=== PATIENT | female | born 1975 | race Caucasian/White ===

== ENCOUNTER 2022-04-20 11:51 | Emergency (ER) | payer BC, SELFPAY ==
[2022-04-20 12:00] VITALS: BP 129/62; PULSE 85; RESP 14; TEMP 36.8; O2SAT 99
--- NOTE | 2022-04-20 12:03 | ED.BACK ---
HPI - Back Pain/Injury General Chief Complaint: Back Pain/Injury Stated Complaint: Low right back pain Time Seen by Provider: 04/20/22 12:40 Source: patient Mode of arrival: ambulatory Limitations: no limitations History of Present Illness HPI Narrative: 47-year-old female presents concern for bilateral low back pain. She denies any injury or trauma. She reports she has had the same pain in the past typically yearly or every other year. She reports pain started yesterday, she tried ibuprofen and she had 1 leftover cyclobenzaprine which did make some difference. She reports pain is worsened with getting up from lying down, bending. Reports pain with her standing up straight. She denies loss of bowel or bladder function, perianal anesthesia, abdominal pain, fever, weakness in extremity MD elicited complaint: back pain Related Data Allergies Allergy/AdvReac Type Severity Reaction Status Date / Time lidocaine Allergy Unknown Itching Verified 04/20/22 12:19 prochlorperazine Allergy Unknown Swelling Verified 04/20/22 12:19 Review of Systems Review of Systems: CONSTITUTIONAL: Denies malaise, chills, sweats, or fever. CARDIOVASCULAR: Denies chest pain, palpitations, or edema. RESPIRATORY: Denies cough or dyspnea. GASTROINTESTINAL: Denies abdominal pain, nausea, vomiting, diarrhea, loss of bowel function GENITOURINARY: Denies dysuria, hematuria, frequency, loss of bladder function. SKIN: Denies rash or itching. MUSCULOSKELETAL: Reports bilateral low back pain, little bit higher on the right. NEUROLOGIC: Denies numbness, weakness, or headache. All systems reviewed & are unremarkable except as noted in HPI and below PMFSH Comments At time of signature, agree with nursing past medical, surgical, social and family history. There is no relevant family history pertinent to the presenting complaint Exam Narrative: GENERAL: Well-appearing, well-nourished, and in no acute distress. HEAD: Normocephalic, atraumatic. EYES: PERRLA and EOMI. NECK: Supple. No lymphadenopathy. CHEST: Clear to auscultation. No respiratory distress. HEART: Regular rate and rhythm. Distal pulses palpable and equal, cap refill <3 seconds ABDOMEN: Soft, nontender, nondistended, normal active bowel sounds, no palpable or pulsatile masses. No CVA tenderness MUSCULOSKELETAL: Normal range of motion and strength in all extremities; 5/5 strength with hip flexion and extension, dorsiflexion and extension, knee flexion and extension, plantar flexion and extension. Normal sensation in dermatomal distributions with sensitivity to light touch and pain. No midline back tenderness to palpation. No paraspinal tenderness. Transfers from lying to sitting to standing. SKIN: Warm, dry, no rash. No ecchymosis, erythema, open wounds to back. NEURO: No focal deficits. Alert and oriented x3. Reflexes intact. Stooped gait. PSYCH: Normal mood and affect Course Course Emergency Course: Patient is aware of diagnosis, understands and agrees to treatment plan. Anticipatory guidance given. Patient agrees to follow-up as directed and is aware of reasons to seek care at the emergency department. Portions of this record may have been created with voice recognition software Level of Care: Express Care Visit Vital Signs Vital signs: Reviewed. MDM - Back Pain/Injury MDM Narrative Medical decision making narrative: No risk factors or findings concerning for epidural abscess, diskitis, vertebral osteomyelitis, cord compression, cauda equina, vertebral fracture or bone malignancy, AAA, or pyelonephritis. Patient instructed to consider further imaging and workup through their primary care physician as an outpatient if symptoms persist. Critical Care Time Critical Care Time Critical Care Time: No Discharge Plan Discharge Clinical Impression: Nonspecific low back pain Patient Disposition: Home, Self-Care Condition: Stable Instructions: Acute Low Back Pain (ED) Additional Instru
[2022-04-20] MEDS: KETOROLAC (*BKC) 60 MG/2 ML VIAL IM (12:11)
[2022-04-20 12:19] VITALS: BP 129/62; PULSE 85; RESP 14; TEMP 36.8; O2SAT 99
== END 2022-04-20 12:47 | disposition home or self-care (01) ==
PROVIDERS: Emergency Provider Nurse Practitioner; PCP Internal Medicine Geriatric Medicine
DX: M54.50 Low back pain, unspecified (principal)
CPT/HCPCS: 96372; 99203; G0463; J1885

== ENCOUNTER 2022-06-02 16:14 | Emergency (ER) | payer BC, SELFPAY ==
[2022-06-02 16:28] VITALS: BP 130/63; PULSE 80; RESP 16; TEMP 36.7; O2SAT 100
--- NOTE | 2022-06-02 17:08 | ED.URI ---
HPI - URI/Sore Throat General Chief Complaint: Upper Respiratory Infection Stated Complaint: Sinus Pain Time Seen by Provider: 06/02/22 17:08 Source: patient and RN notes reviewed Mode of arrival: ambulatory Limitations: no limitations History of Present Illness HPI Narrative: 47-year-old female presenting for complaint of cough, headache, body aches, and fatigue over the last 2 days. She also endorses sinus pressure/congestion for 3 weeks. states she has seasonal allergies and uses Flonase and Zyrtec year-round. She states this is how she feels when she has sinus infections. Denies shortness of breath, wheezing, nausea, vomiting, diarrhea, fever or chills. She had a negative COVID test at home. MD elicited complaint: cough Related Data Home Medications Medication Instructions Recorded Confirmed cetirizine 10 mg tablet (Zyrtec) 10 mg PO DAILY 06/02/22 06/02/22 cholecalciferol (vitamin D3) 125 125 mcg PO DAILY 06/02/22 06/02/22 mcg (5,000 unit) capsule (Dialyvite Vitamin D) fluticasone propionate 50 1 spray intranasal Q12H 06/02/22 06/02/22 mcg/actuation nasal spray,suspension melatonin 10 mg tablet 10 mg PO HS PRN Sleep 06/02/22 06/02/22 Allergies Allergy/AdvReac Type Severity Reaction Status Date / Time lidocaine Allergy Unknown Itching Verified 06/02/22 16:46 prochlorperazine Allergy Unknown Swelling Verified 06/02/22 16:46 Review of Systems Review of Systems: ROS per HPI Exam Narrative: GENERAL: Ill-appearing, nontoxic EYES: PERRLA, conjunctivae clear ENT: Mucous membranes moist. maxillary pressure with palpation. TM pearly perez with dull light reflex bilaterally; no tragal tenderness. Oropharynx erythematous without lesions or exudate, no drooling, no hoarseness, no trismus, uvula midline. CHEST: Clear to auscultation, breath sounds equal. No wheezing, rhonchi, rales, or stridor. No respiratory distress, speaks in full sentences. HEART: Regular rate and rhythm. No murmur heard. SKIN: Warm, dry, no rash. NEURO: Alert and oriented x3. PSYCH: Normal mood and affect Course Course Emergency Course: Patient is aware of diagnosis, understands and agrees to treatment plan. Anticipatory guidance given. Patient agrees to follow-up as directed and is aware of reasons to seek care at the emergency department. Portions of this record may have been created with voice recognition software Level of Care: Express Care Visit Vital Signs Vital signs: Vital Signs Temperature 98.1 F 06/02/22 16:28 Pulse Rate 80 06/02/22 16:28 Respiratory Rate 16 06/02/22 16:28 Blood Pressure 130/63 06/02/22 16:28 Pulse Oximetry 100 06/02/22 16:28 Oxygen Delivery Room Air 06/02/22 16:28 Temperature 98.1 F 06/02/22 16:28 Pulse Rate 80 06/02/22 16:28 Respiratory Rate 16 06/02/22 16:28 Blood Pressure 130/63 06/02/22 16:28 Pulse Oximetry 100 06/02/22 16:28 Oxygen Delivery Room Air 06/02/22 16:28 reviewed MDM - URI/Sore Throat MDM Narrative Medical decision making narrative: Influenza positive. Patient also has had sinus pressure and congestion for 3 weeks. Will send an antibiotic for sinusitis. Advised supportive measures and signs/symptoms to go to the ER. Pt is appropriate for outpt treatment and f/u. Differential Diagnosis Differential diagnosis: Likely upper respiratory infection, sinusitis and viral infection Discharge Plan Discharge Clinical Impression: Influenza, Upper respiratory infection Patient Disposition: Home, Self-Care Condition: Stable Instructions: Influenza (ED), Rhinosinusitis (ED) Additional Instructions: Influenza positive You should avoid crowds until you are fever free for 24 hours without the use of fever reducing medications, or the symptoms are improved Rest. Drink plenty of fluids. Tylenol 1000mg every 8 hours as needed for pain/fever Recommend Flonase spray and Zyrtec (or Claritin/Cristy) for sinus pressure/congestion ove
== END 2022-06-02 17:20 | disposition home or self-care (01) ==
PROVIDERS: Emergency Provider Nurse Practitioner Family
DX: J10.1 Influenza due to other identified influenza virus with other respiratory manifestations (principal)
CPT/HCPCS: 87804; 99213; G0463

== ENCOUNTER 2024-08-22 18:22 | Emergency (ER) | payer BC, SELFPAY ==
--- OUTSIDE RECORDS SUMMARY | 2024-08-22 18:24 | XMS_ITS | Referral Summary ---
Author Organization [facility] Address [address] [place] [address] Care Team Providers Care Timber Cruiser Name Role Phone Gregor Allred MD Primary Care Provider + Encounters Date Type Department Care Team Description 06/25/2024 1:30 PM WATER AND SEWER SYSTEMS SUPERVISOR Office Visit [facility] at [address] [place] [address] Jennifer Taylor NP Bacterial sinusitis (Primary Dx) 06/25/2024 Telephone [facility] [address] [address] Chioma Diane NP 06/21/2024 6:30 PM WATER AND SEWER SYSTEMS SUPERVISOR Office Visit [facility] at [address] [place] [address] Chioma Diane NP Pharyngitis, unspecified etiology (Primary Dx); Aphthous ulcer from Last 3 Months Allergies Active Allergy Reactions Criticality Noted Date Comments Latex Rash Medium 03/17/2023 Lidocaine Itching,Swelling,Unk nown Medium 06/09/2017 Prochlorperazine Anaphylaxis High Prochlorperazine Maleate Other (See comments),Swelling Medium 08/31/2016 eyes roll back Medications fluticasone (FLONASE) 50 mcg/actuation nasal spray Administer 1 spray into each nostril daily 2 sprays 1 7 Active cholecalciferol (VITAMIN D-3) 5,000 unit capsuleIndicati ons:Vitamin D Deficiency Take 1 capsule (5,000 Units total) by mouth daily Active melatonin 5 mg capsule Take 5 mg by mouth nightly. Active cetirizine 10 mg capsule Take 10 mg by mouth daily Active Active Problems Problem Noted Date Diagnosed Date Post-op pain 06/30/2017 Seasonal allergic rhinitis 05/11/2012 Overview (10/06/2016): Seasonal allergies Social History Tobacco Use Types Packs/Day Years Used Date Smoking Tobacco: Never Smokeless Tobacco: Never Tobacco Cessation:Counseling Given: Not Answered Alcohol Use Standard Drinks/Week Comments No 0 (1 standard drink = 0.6 oz pur e alcohol) Comments No Sex and Gender Information Value Date Recorded Sex Assigned at Not on file Legal Sex Female 3:03 PM WATER AND SEWER SYSTEMS SUPERVISOR Gender Identity Not on file Sexual Orientation Not on file Last Filed Vital Signs Vital Sign Reading Time Taken Comments Blood Pressure 122/84 06/25/2024 1:36 PM WATER AND SEWER SYSTEMS SUPERVISOR Pulse 86 06/25/2024 1:36 PM WATER AND SEWER SYSTEMS SUPERVISOR Temperature 36.8 C (98.3 F) 06/25/2024 1:36 PM WATER AND SEWER SYSTEMS SUPERVISOR Respiratory Rate 18 06/25/2024 1:36 PM WATER AND SEWER SYSTEMS SUPERVISOR Oxygen Saturation 98% 06/25/2024 1:36 PM WATER AND SEWER SYSTEMS SUPERVISOR Inhaled Oxygen Concentration - - Weight 104.3 kg (230 lb) 06/25/2024 1:36 PM WATER AND SEWER SYSTEMS SUPERVISOR Height 180.3 cm (5' 11 ) 06/25/2024 1:36 PM WATER AND SEWER SYSTEMS SUPERVISOR Body Mass Index 32.08 06/25/2024 1:36 PM WATER AND SEWER SYSTEMS SUPERVISOR Plan of Treatment Not on file Procedures Procedure Name Priority Date/Time Associated Diagnosis Comments POCT RAPID STREP Routine 06/21/2024 7:18 PM WATER AND SEWER SYSTEMS SUPERVISOR Pharyngitis, unspecified etiology POCT INFLUENZA A/B Routine 06/21/2024 7: 04 PM WATER AND SEWER SYSTEMS SUPERVISOR Pharyngitis, unspecified etiology COVID-19 POC Routine 06/21/2024 7:04 PM WATER AND SEWER SYSTEMS SUPERVISOR Pharyngitis, unspecified etiology from Last 3 Months Results * POCT rapid strep A (06/21/2024 7:18 PM WATER AND SEWER SYSTEMS SUPERVISOR) Rapid Strep A, POC Negative Negative Swab 06/21/2024 7:18 PM WATER AND SEWER SYSTEMS SUPERVISOR Chioma Diane PINEAPPLE PLANTATION MANAGER POINT OF CARE TEST ORDERABLES Final Result * COVID-19 POC (06/21/2024 7:04 PM WATER AND SEWER SYSTEMS SUPERVISOR) COVID-19 Ag POC (BD Veritor) Presumptive Negative Presumptive Negative, Invalid [facility] Nasal 06/21/2024 7:04 PM WATER AND SEWER SYSTEMS SUPERVISOR Chioma Diane PINEAPPLE PLANTATION MANAGER POINT OF CARE TEST ORDERABLES Final Result [facility] [address] [place] [address], [facility] * POCT influenza A/B (06/21/2024 7:04 PM WATER AND SEWER SYSTEMS SUPERVISOR) Rapid Influenza A Ag Negative Negative, Invalid Rapid Influenza B Ag Negative Negative, Invalid Nasal 06/21/2024 7:04 PM WATER AND SEWER SYSTEMS SUPERVISOR Chioma Diane PINEAPPLE PLANTATION MANAGER POINT OF CARE TEST ORDERABLES Final Result from Last 3 Months Insurance [facility] ACCESS CHOICE [facility] ACCESS CHOICE Care Teams Timber Cruiser Relationship Specialty [place] [id number] [facility] [address] [place] [address] PCP - General 06/22/17
--- OUTSIDE RECORDS SUMMARY | 2024-08-22 18:24 | XMS_ITS | Clinical Summary ---
Author Organization [facility] Address [address] [place] [address] Care Team Providers Care Hop Picker Name Role Phone Gregor Allred MD Primary Care Provider + Allergies Active Allergy Reactions Criticality Noted Date [...] allergic rhinitis 05/11/2012 Overview (10/06/2016): Seasonal allergies Encounters Date Type Department Care Team Description 06/25/2024 1:30 PM ASSISTANT DIRECTOR OF RESIDENCE LIFE Office Visit [facility] at [address] [place] [address] Jennifer Taylor NP Bacterial sinusitis (Primary Dx) 06/25/2024 Telephone [facility] of [address] [address] Chioma Diane NP 06/21/2024 6:30 PM ASSISTANT DIRECTOR OF RESIDENCE LIFE Office Visit [facility] [place] [address] [place] [address] Chioma Diane NP Pharyngitis, unspecified etiology (Primary Dx); Aphthous ulcer from Last 3 Months Surgical History Surgery Date Site/Laterality Comments TUBAL LIGATION 07/04/2008 - 07/03/2009 Bilateral tubal ligation OTHER SURGICAL HISTORY 07/04/1999 - 07/03/2000 : 8 hr labor OTHER SURGICAL HISTORY 07/04/2002 - 07/03/2003 : 7 hr labor OTHER SURGICAL HISTORY 07/04/2004 - 07/03/2005 : 6 hr labor OTHER SURGICAL HISTORY 07/04/2008 - 07/03/2009 : SECTION FASCIOTOMY Right Plantar Medical History Medical History Date Comments Hx Other Medical 1999 ; Outc ome: 38 week 8 lb(s) 8 oz Female Hx Other Medical 2002 ; Outc ome: 39 week 8 lb(s) 3 oz Female Hx Other Medical 2004 ; Outc ome: 39 week 8 lb(s) 12 oz Male Hx Other Medical 2008 ; Outc ome: 39 week 8 lb(s) 8 oz Female Mitral valve disorder Dr. olvin paez Family History Medical History Relation Name Comments Asthma Daughter Asthma; Hypertension Father Hypertension; Other Father Mellanoma; Heart disease Father's Brother Heart dise ase; Colon cancer Maternal Grandmother Cancer, colon; Osteoporosis Mother Osteoporosis; Relation Name Status Comments Daughter Father Father's Brother Maternal Grandmother Mother Social History Tobacco Use Types Packs/Day Years Used Date Smoking Tobacco: Never Smokeless Tobacco: Never Tobacco Cessation:Counseling Given: Not Answered Alcohol Use Standard Drinks/Week Comments No 0 (1 standard drink = 0.6 oz pur e alcohol) Comments No Sex and Gender Information Value Date Recorded Sex Assigned at Not on file Legal Sex Female 3:03 PM ASSISTANT DIRECTOR OF RESIDENCE LIFE Gender Identity Not on file Sexual Orientation Not on file Obstetrics History Last Filed Vital Signs Vital Sign Reading Time Taken Comments Blood Pressure 122/84 06/25/2024 1:36 PM ASSISTANT DIRECTOR OF RESIDENCE LIFE Pulse 86 06/25/2024 1:36 PM ASSISTANT DIRECTOR OF RESIDENCE LIFE Temperature 36.8 C (98.3 F) 06/25/2024 1:36 PM ASSISTANT DIRECTOR OF RESIDENCE LIFE Respiratory Rate 18 06/25/2024 1:36 PM ASSISTANT DIRECTOR OF RESIDENCE LIFE Oxygen Saturation 98% 06/25/2024 1:36 PM ASSISTANT DIRECTOR OF RESIDENCE LIFE Inhaled Oxygen Concentration - - Weight 104.3 kg (230 lb) 06/25/2024 1:36 PM ASSISTANT DIRECTOR OF RESIDENCE LIFE Height 180.3 cm (5' 11 ) 06/25/2024 1:36 PM ASSISTANT DIRECTOR OF RESIDENCE LIFE Body Mass Index 32.08 06/25/2024 1:36 PM ASSISTANT DIRECTOR OF RESIDENCE LIFE Plan of Treatment Health Maintenance Due Date Last Done Comments Breast Cancer Screening-Mammogram 1975 Cervical Cancer Screening 1975 Colon Cancer Screening-Colonoscopy 1975 Depression Screening 1975 Hepatitis C Screening 1975 DTaP/Tdap/Td Vaccine (1 - Tdap) 1986 Hepatitis B Screening 1993 Regular Well Visit/Exam 18-64 1993 Covid-19 Vaccine (4 - 2023-2 5 season) 2024 05/17/2021, 09/19/2020, 08/28/2020 Influenza Vaccine (#1) 2024 , 04/14/2020 Pneumococcal vaccine <65 Aged Out No longer eligible based on patient's age to complete this topic Procedures Procedure Name Priority Date/Time Associated Diagnosis Comments POCT RAPID STREP Routine 06/21/2024 7:18 PM ASSISTANT DIRECTOR OF RESIDENCE LIFE Pharyngitis, unspecified etiology POCT INFLUENZA A/B Routine 06/21/2024 7: 04 PM ASSISTANT DIRECTOR OF RESIDENCE LIFE Pharyngitis, unspecified etiology COVID-19 POC Routine 06/21/2024 7:04 PM ASSISTANT DIRECTOR OF RESIDENCE LIFE Pharyngitis, unspecified etiology from Last 3 Months Results * POCT rapid strep A (06/21/2024 7:18 PM ASSISTANT DIRECTOR OF RESIDENCE LIFE) Rapid Strep A, POC Negative Negative Swab 06/21/2024 7:18 PM ASSISTANT DIRECTOR OF RESIDENCE LIFE Chioma Diane NP POINT OF CARE TEST ORDERABLES Final Result * COVID-19 POC (06/21/2024 7:04 PM ASSISTANT DIRECTOR OF RESIDENCE LIFE) COVID-19 Ag POC (BD Veritor) Presumptive Negative Presumptive Negative, Invalid [facility] Nasal 06/21/2024 7:04 PM ASSISTANT DIRECTOR OF RESIDENCE LIFE Chioma Diane LOG RAFT WORKER POINT OF CARE TEST ORDERABLES Final Result [facility] [address] [place] [address], [facility] * POCT influenza A/B (06/21/2024 7:04 PM ASSISTANT DIRECTOR OF RESIDENCE LIFE) Pathologist [facility] Rapid Influenza A Ag Negative Negative, Invalid Rapid Influenza B Ag Negative Negative, Invalid Nasal 06/21/2024 7:04 PM ASSISTANT DIRECTOR OF RESIDENCE LIFE Result [facility] Chioma Diane LOG RAFT WORKER POINT OF CARE TEST ORDERABLES Final Result from Last 3 Months Insurance [facility] ACC[facility] CHO[facility] [employer] ACCESS CHOICE Care Teams Hop Picker Relationship Specialty [place] [id number] [facility] [address] [place] [address] PCP - General 06/22/17
--- OUTSIDE RECORDS SUMMARY | 2024-08-22 18:24 | XMS_ITS | Clinical Summary ---
Author Organization [facility] Address [address] [place] [address] Care Team Providers Care Hot Mix Operator Name Role Phone Gregor Randolph MD Primary Care Provider [phone] Source Comments [facility],non-owned Affiliates and Associated Physician Practices is amultiple site organization consisting of ambulatory clinics and hospital sitesin [place], [place], [place] and [place]. This disclosure is being madepursuant to the Care Everywhere program and may not contain all information available regarding this patient. Last updated 18.[facility] Allergies Active Allergy Reactions Criticality Noted Date Comments Prochlorperazine 03/09/2016 Lidocaine 06/09/2017 Medications * Be aware that medications may not be up to date on this document. Alwaysverify current medications with the patient. Medication Sig Dispensed Refills Start Date End Date Status cetirizine (ZYRTEC ALLERGY) 10 MG gel capsule Take 10 mg by mouth once daily Active fluticasone propionate (FLONASE) 50 MCG/ACT nasal spray 2 sprays in each nostril once daily (best after shower/ bath) 08/31/2016 Active vitamin D3 (CHOLECALCIFEROL) 1000 UNITS tablet Active melatonin 5 MG sl tablet Take 5 mg by mouth at bedtime Active montelukast (SINGULAIR) 10 MG tablet TK 1 T PO QD 6 02/22/2019 Active montelukast (SINGULAIR) 10 MG tablet Take 1 tablet by mouth once daily 90 tablet 02/23/2020 Active Additional Information Patient not taking.Reported on 10/08/2020 predniSONE (DELTASONE) 10 MG tablet Take by mouth with food: 60 mg (6 tab) on day 1, 50 mg (5 tab) on day 2, 40 mg (4 tab) on day 3, 30 mg (3 tab) on day 4, 20 mg (2 tab) on day 5, and 10 mg (1 tab) on day 6. 21 tablet 10/08/2020 Active Family History Medical History Relation Name Comments CAD (Coronary Artery Disease) Father stents Hypertension Father CAD (Coronary Artery Disease) Paternal Grandfather [place] Relation Name Status Comments Father Paternal Grandfather Social History Tobacco Use Types Packs/Day Years Used Date Smoking Tobacco: Never Smokeless Tobacco: Never Sex and Gender Information Value Date Recorded Sex Assigned at Not on file Gender Identity Not on file Sexual Orientation Not on file Last Filed Vital Signs Vital Sign Reading Time Taken Comments Blood Pressure 126/77 10/08/2020 6:29 PM CDT Pulse 90 10/08/2020 6:29 PM CDT Temperature 36.6 C (97.9 F) 10/08/2020 6:29 PM CDT Respiratory Rate 18 10/08/2020 6:29 PM CDT Oxygen Saturation 98% 10/08/2020 6:29 PM CDT Inhaled Oxygen Concentration - - Weight 104.3 kg (230 lb) 10/08/2020 6:29 PM CDT Height 180.3 cm (5' 11 ) 10/08/2020 6:29 PM CDT Body Mass Index 32.08 10/08/2020 6:29 PM CDT Plan of Treatment Health Maintenance Due Date Last Done Comments COLOGUARD (AGES 45-75) - COL ON CA SCREENING 1975 COLON MONITORING 1975 COLONOSCOPY - COLON CA SCREENING 1975 CT COLONOGRAPHY - COLON CA SCREENING 1975 Colorectal Cancer Screening 1975 FIT - COLON CA SCREENING 1975 FLEX SIG - COLON CA SCREENING 1975 LIPID TESTING 1975 MAMMOGRAM 1975 PAP SMEAR 1975 HIV SCREENING 1990 HEPATITIS C SCREENING 01/23/1993 DTAP/TDAP/TD VACCINES (1 - Tdap) 1994 HEPATITIS B VACCINE (1 of 3 - 19+ 3-dose series) 1994 SCREENING FOR DIABETES 06/09/2017 COVID-19 VACCINE (2023-2 5 season) 2024 09/19/2020, 08/28/2020 INFLUENZA VACCINE (#1) 2024 04/14/2020 DEPRESSION SCREENING 07/04/2024 ZOSTER VACCINE (1 of 2) 2025 HIB VACCINE Aged Out No longer eligi ble based on patient's age to complete this topic HPV VACCINE Aged Out No longer eligi ble based on patient's age to complete this topic MENINGOCOCCAL (Group B) VACCINE Aged Out No longer eligible b ased on patient's age to complete this topic MENINGOCOCCAL VACCINE Aged Out No che jessy eligible based on patient's age to complete this topic PNEUMOCOCCAL VACCINE Aged Out No long er eligible based on patient's age to complete this topic Care Teams Hot Mix Operator Relationship Specialty Start [place] [id number] [facility] [place] [id number] PCP - General Internal Medicine 03/09/16
--- OUTSIDE RECORDS SUMMARY | 2024-08-22 18:24 | XMS_ITS | Clinical Summary ---
Author Organization [facility] Address [address], [facility] [address] [place] [address] Phone Care Team Providers Care Biztalk Administrator Name Role Phone Gregor Randolph MD Primary Care Provider [phone] Allergies Active Allergy Reactions Criticality Noted Date Comments Prochlorperazine Maleate Swelling,Other (see Comments) 08/31/2016 eyes roll back Lidocaine Unknown 06/09/2017 Medications vitamin D (CHOLECALCIFEROL) 1000 UNIT Tablet Take 1,000 Units by mouth daily. Active fluticasone (FLONASE) 50 MCG/ACT SuspensionIndication s:Seasonal allergic rhinitis due to pollen,Allergy to mold 2 sprays in each nostril once daily (best after shower/ bath) 3 Bottle 3 7 Active albuterol 108 (90 Base) MCG/ACT Aerosol Solution take 2 Puffs by inhalation. 9 Active Melatonin 5 MG SL Tablet Take 5 mg by mouth. Active montelukast (SINGULAIR) 10 MG Tablet 0 Active Levocetirizine Dihydrochloride (XYZAL ALLERGY 24HR) 5 MG TabletIndications:Ch ronic rhinitis Take 1 Tab by mouth daily. 30 Tab 3 0 Active Active Problems Problem Noted Date Diagnosed Date Seasonal allergic rhinitis due to pollen 017 Allergy to mold 08/31/2016 Malocclusion of teeth 08/31/2016 Headache 08/31/2016 TMJ (temporomandibular joint syndrome) 7 Family History Medical History Relation Name Comments Cancer Father Congestive Heart Failure Father Relation Name Status Comments Father Alive Mother Alive Social History Tobacco Use Types Packs/Day Years Used Date Smoking Tobacco: Never Smokeless Tobacco: Never Alcohol Use Standard Drinks/Week Comments No 0 (1 standard drink = 0.6 oz pur e alcohol) Comments No Sex and Gender Information Value Date Recorded Sex Assigned at Not on file Legal Sex Female 7:35 PM CDT Gender Identity Not on file Sexual Orientation Not on file Last Filed Vital Signs Vital Sign Reading Time Taken Comments Blood Pressure 120/80 07/19/2019 3:35 PM SAFETY PHYSICIAN Pulse 78 07/19/2019 3:35 PM SAFETY PHYSICIAN Temperature 36.6 C (97.8 F) 07/19/2019 3:35 PM SAFETY PHYSICIAN Respiratory Rate 18 07/19/2019 3:35 PM SAFETY PHYSICIAN Oxygen Saturation 98% 07/19/2019 3:35 PM SAFETY PHYSICIAN Inhaled Oxygen Concentration - - Weight 111.1 kg (245 lb) 07/19/2019 3:35 PM SAFETY PHYSICIAN Height 180.3 cm (5' 11 ) 07/19/2019 3:35 PM SAFETY PHYSICIAN Body Mass Index 34.17 07/19/2019 3:35 PM SAFETY PHYSICIAN Plan of Treatment Health Maintenance Due Date Last Done Comments Hepatitis C Virus (HCV) Screening 1975 TdaP Immunization 1975 Hepatitis B Immunization (1 of 3 - 19+ 3-dose series) 1994 Pap Smear 01/29/1996 Cervical Cancer Screening (CCS) 2005 HPV/Cotest 2005 Discussion re Starting/Frequency of Mammograms 2015 Colonoscopy 01/29/2020 Colorectal Cancer Screening 01/29/2020 Influenza Immunization (#1) 2024 SARS-COV-2 Immunization ( season) 2024 05/17/2021, 09/19/2020, 08/28/2020 Respiratory Syncytial Virus (RSV) Immunization (Adult) (1 - 1-dose 75+ series) 2050 Meningococcal Immunization (ACWY) Aged Out No longer eligible b ased on patient's age to complete this topic Pneumococcal Immunization Combined Aged Out No longer eligible b ased on patient's age to complete this topic Rotavirus Immunization Aged Out No lo nger eligible based on patient's age to complete this topic Insurance [facility] Care Teams Biztalk Administrator Relationship Specialty [place] [address] [address] [place] [address] PCP - General Internal Medicine 08/31/16
--- OUTSIDE RECORDS SUMMARY | 2024-08-22 18:24 | XMS_ITS | Referral Summary ---
Author Organization [facility] [email or web address] Address [address] [place] [address] Care Team Providers Care Hogshead Dumper Name Role Phone Gregor Randolph MD Primary Care Provider [phone] Source Comments [facility] [email or web address],non-owned Affiliates and Associated Physician Practices is amultiple site organization consisting of ambulatory clinics and hospital sitesin [place], [place], [place] and [place]. This disclosure is being madepursuant to the Care Everywhere program and may not contain all information available regarding this patient. Last updated 18.[facility] [email or web address] Allergies Active Allergy Reactions Criticality Noted Date [...] on day 6. 21 tablet 10/08/2020 Active Social History Tobacco Use Types Packs/Day Years [...] 10/08/2020 6:29 PM CDT Plan of Treatment Not on file Care Teams Hogshead Dumper Relationship Specialty [place] [address] [place] [address] PCP - General Internal Medicine 03/09/16
--- OUTSIDE RECORDS SUMMARY | 2024-08-22 18:24 | XMS_ITS | Encounter Summary ---
Author Organization [facility] Address [address] [place] [address] Phone Care Team Providers Care Chemical Treatment Operator Name Role Phone Gregor Randolph MD Primary Care Provider [phone] Reason for Visit * Reason Comments Medication Refill Encounter Details Date Type Department Care Team (Late st Contact Info) Description 11/22/2019 Refill [facility] - [facility]ose [facility] Th[facility] - [place] [address] [address] Renetta Esparza PAC Medication Refill Social History Tobacco Use Types Packs/Day Years Used Date Smoking Tobacco: Never Smokeless Tobacco: Never Alcohol Use Standard Drinks/Week Comments No 0 (1 standard drink = 0.6 oz pur e alcohol) Comments No Sex and Gender Information Value Date Recorded Sex Assigned at Not on file Legal Sex Female 7:35 PM CDT Gender Identity Not on file Sexual Orientation Not on file documented as of this encounter Miscellaneous Notes * Telephone Encounter - Lainey Youssef RN - 11/23/2019 9:31 AM CDT Renetta Esparza PA-C has retired and is no longer with receiving medication refill requests. Dr. Allred's office notified of prescription request. documented in this encounter Plan of Treatment Not on file documented as of this encounter Visit Diagnoses Diagnosis Chronic rhinitis documented in this encounter Care Teams Chemical Treatment Operator Relationship Specialty [place] [address] [facility] [address] [place] [address] PCP - General Internal Medicine 08/31/16 documented as of this encounter
--- OUTSIDE RECORDS SUMMARY | 2024-08-22 18:24 | XMS_ITS | Patient Health Summary ---
Author Organization [facility] Address [address] [facility] [place] [address] Care Team Providers Care Cableway Operator Name Role Phone Gregor Randolph MD Primary Care Provider [phone] Note from [facility],non-owned Affiliates and Associated Physician Practices is amultiple site organization consisting of ambulatory clinics and hospital sitesin [place], [place], [place] and [place]. This disclosure is being madepursuant to the Care Everywhere program and may not contain all information available regarding this patient. Last updated 18.[facility] Allergies * Prochlorperazine * Lidocaine Medications * Be aware that medications may not be up to date on this document. Alwaysverify current medications with the patient. * cetirizine (ZYRTEC ALLERGY) 10 MG gel capsule Take 10 mg by mouth once daily * fluticasone propionate (FLONASE) 50 MCG/ACT nasal spray(Started 08/31/2016) 2 sprays in each nostril once daily (best after shower/ bath) * vitamin D3 (CHOLECALCIFEROL) 1000 UNITS tablet * melatonin 5 MG sl tablet Take 5 mg by mouth at bedtime * montelukast (SINGULAIR) 10 MG tablet(Started 02/22/2019) TK 1 T PO QD 6 refills left * montelukast (SINGULAIR) 10 MG tablet(Started 02/23/2020) Take 1 tablet by mouth once daily * predniSONE (DELTASONE) 10 MG tablet(Started 10/08/2020) Take by mouth with food: 60 mg (6 tab) on day 1, 50 mg (5 tab) on day 2, 40 mg (4 tab) on day 3, 30mg (3 tab) on day 4, 20 mg (2 tab) on day 5, and 10 mg (1 tab) on day 6. Social History Tobacco Use Types Packs/Day Years [...] Mass Index 32.08 10/08/2020 6:29 PM CDT Procedures * STREP A SCREEN - POINT OF CARE (AMB) STL(Performed 10/13/2016) Performed for Acute pharyngitis, unspecified etiology * STREP A SCREEN - POINT OF CARE (AMB) STL(Performed 09/15/2016) Performed for Acute pharyngitis, unspecified etiology Results * STREP A SCREEN (10/13/2016) Only the most recent of2 resultswithin the time period is included. Strep A Rapid POCT Negative Negative Strep A Internal Control Present Lot # [id number] Expiration Date [id number] Throat ENTIRE THROAT (SURFACE REGION OF NECK) / Unknown 10/13/2016 Alicia Swenson BACKER UP-ENDING MACHINE OPERATOR LAB - POINT O F CARE ORDERABLES Care Teams Cableway Operator Relationship Specialty [place] [address] [address] [facility] [place] [address] PCP - General Internal Medicine 03/09/16
[2024-08-22 18:26] VITALS: BP 122/65; PULSE 92; RESP 16; TEMP 37; O2SAT 100
--- NOTE | 2024-08-22 18:38 | ED_ITS ---
HPI - URI/Sore Throat General Chief Complaint: Back Pain/Injury Stated Complaint: back pain/sinus infection Time Seen by Provider: 08/22/24 18:38 Source: patient and RN notes reviewed Mode of arrival: ambulatory Limitations: no limitations History of Present Illness HPI Narrative: 49-year-old female presents with concerns for multiple complaints. She reports for 2 weeks she has had sinus congestion, drainage, sinus pain. Reports she has been taking [id number] medications without relief. She denies fever, chills, sweats. The separate complaint she reports low back pain for 2 months. Reports it is worse on the left. She reports she has been taking Aleve twice daily without relief. She denies loss of bowel or bladder function, perianal anesthesia, weakness in the extremity. She denies dysuria, frequency, urgency. She denies abdominal MD elicited complaint: sinus pain Related Data Home Medications ?Medication ?Instructions ?Recorded ?Confirmed ?Last Taken ?Type cetirizine 10 mg tablet (Zyrtec) 10 mg PO DAILY 06/02/22 06/02/22 Unknown History cholecalciferol (vitamin D3) 125 125 mcg PO DAILY 06/02/22 06/02/22 Unknown History mcg (5,000 unit) capsule (Dialyvite Vitamin D) fluticasone propionate 50 1 spray intranasal Q12H 06/02/22 06/02/22 Unknown History mcg/actuation nasal spray,suspension melatonin 10 mg tablet 10 mg PO HS PRN Sleep 06/02/22 06/02/22 Unknown History Allergies Allergy/AdvReac Type Severity Reaction Status Date / Time latex Allergy Intermediate Rash Verified 08/22/24 18:40 lidocaine Allergy Unknown Itching Verified 08/22/24 18:40 prochlorperazine Allergy Unknown Swelling Verified 08/22/24 18:40 Review of Systems Review of Systems: CONSTITUTIONAL: Denies malaise, chills, sweats, or fever. EYES: Denies visual changes, redness, or discharge. ENT: Reports rhinorrhea, congestion, sinus pain CARDIOVASCULAR: Denies chest pain, palpitations, or edema. RESPIRATORY: Reports cough. Denies dyspnea. GASTROINTESTINAL: Denies abdominal pain, nausea, vomiting, diarrhea SKIN: Denies rash or itching. MUSCULOSKELETAL: Denies myalgia. Reports low back pain NEUROLOGIC: Denies headache. All systems reviewed & are unremarkable except as noted in HPI and below PMFSH Comments At time of signature, agree with nursing past medical, surgical, social and family history. There is no relevant family history pertinent to the presenting complaint Exam Narrative: GENERAL: Well-appearing, well-nourished, and in no acute distress. HEAD: Normocephalic EYES: PERRLA, conjunctivae clear ENT: Nares clear, turbinates edematous and erythematous, clear discharge. Mucous membranes moist. TM pearly perez with dull light reflex bilaterally; no tragal tenderness. Oropharynx not erythematous without lesions. Tonsils not enlarged and without exudate, no drooling, no hoarseness, no trismus, uvula midline. NECK: Supple. No lymphadenopathy CHEST: Clear to auscultation, breath sounds equal. No wheezing, rhonchi, rales, or stridor. No respiratory distress, speaks in full sentences. HEART: Regular rate and rhythm. No murmur heard. ABDOMEN: Soft, nontender, nondistended, normal active bowel sounds, no palpable or pulsatile masses. No CVA tenderness MUSCULOSKELETAL: Normal range of motion and strength in all extremities; 5/5 strength with hip flexion and extension, dorsiflexion and extension, knee flexion and extension, plantar flexion and extension. Transfers from sitting to standing. SKIN: Warm, dry, no rash. NEURO: Alert and oriented x3. PSYCH: Normal mood and affect Course Course Emergency Course: Patient is aware of diagnosis, understands and agrees to treatment plan. Anticipatory guidance given. Patient agrees to follow-up as directed and is aware of reasons to seek care at the emergency department. Portions of this record may have been created with voice recognition software Level of Care: Express Care Visit Vital Signs Vital signs: Vital Signs Temperature 98.6 F 08/22/24 18: Pulse Rate 92 08/22/24 18: Respiratory Rate 16 08/22/24 18: Blood Pressure 122/65 08/22/24 18: Pulse Oximetry 100 08/22/24 18: Oxygen Delivery Room Air 08/22/24 18: Temperature 98.6 F 08/22/24 18: Pulse Rate 92 08/22/24 18: Respiratory Rate 16 08/22/24 18: Blood Pressure 122/65 08/22/24 18: Pulse Oximetry 100 08/22/24 18:26 Oxygen Delivery Room Air 08/22/24 18:26 Reviewed. MDM - URI/Sore Throat MDM Narrative Medical decision making narrative: Differential diagnosis considered: Abdul virus, strep pharyngitis, allergic rhinitis, upper respiratory tract infection, sinusitis, rhinosinusitis, nasopharyngitis. viral pharyngitis, otitis media, otitis externa, pneumonia, bronchitis, viral cough syndrome, viral syndrome, and influenza. Exam findings show no acute concerns or changes; patient is non-toxic appearing and is in no distress. Patient is appropriate for outpatient treatment and follow-up. No risk factors or findings concerning for epidural abscess, diskitis, vertebral osteomyelitis, cord compression, cauda equina, vertebral fracture or bone malignancy, AAA, or pyelonephritis. Patient instructed to consider further imaging and workup through their primary care physician as an outpatient if symptoms persist. Lab Data Attestation: I reviewed the patient's lab results. Critical Care Time Critical Care Time Critical Care Time: No Discharge Plan Discharge Clinical Impression: Sinusitis, Nonspecific low back pain Patient Disposition: Home, Self-Care Condition: Stable Instructions: Antibiotic Form, Sinusitis (ED), Acute Low Back Pain (ED) Additional Instructions: Sinusitis: Symptomatic treatment of a sinus infection aims to relieve symptoms. These treatments do not shorten the duration of illness. Nonprescription pain medications, such as acetaminophen (eg, Tylenol) or ibuprofen (eg, Motrin, Advil), are recommended for pain. Flushing the nose and sinuses with a saline solution several times per day has been proven to decrease pain associated with congestion and shorten the duration of symptoms. Nasal steroids (such as Flonase, 2 sprays in each nostril daily) can help to reduce swelling inside the nose, usually within two to three days. These drugs h ave few side effects and relieve symptoms in most people. Oral decongestants (pseudoephedrine and phenylephrine) may be helpful if you have associated symptoms of ear pain or fullness. Nasal decongestant sprays, including oxymetazoline (Afrin) and phenylephrine (Tj-Synephrine), can be used to temporarily treat congestion. However, these sprays should not be used for more than two to three days due to the risk of rebound congestion (when the nose becomes congested constantly unless the medication is used repeatedly), possible addiction, and long-term consequences of frequent use, including persistent nasal dryness and crusting, which is very difficult to treat once it has developed. Medications to thin secretions (such as guaifenesin) may help to clear mucus. Please follow-up with your primary care doctor in the next 1-2 days. If you cannot follow-up with your primary care doctor please go to the ED for any urgent issues. If you have any worsening of symptoms or any other concerns please go to the ED immediately. Back pain Please follow up with your Primary Care Doctor within 48-72 hours - call for an appointment. Walking and other gentle exercising several times a week has been shown to improve back pain; bed rest is not recommended. Take prednisone as directed, take muscle relaxers every 8 hours as needed for muscle spasm- do not drive or make any important decisions while on this medication for it can make you drowsy. You may apply heat or cold to the area as needed. If you experience any worsening pain, swelling, numbness, weakness please go to ER. Contact your doctor or go to the emergency department if you develop problems with bladder or bowel function, weakness or loss of feeling in one or both of your legs, or any other serious concerns. Patient Language: Khmer Prescriptions: New amoxicillin-pot clavulanate 875-125 mg tablet 1 tablet PO Q12H 10 Days Qty: 20 0RF cyclobenzaprine 10 mg tablet 10 mg PO TID PRN (Reason: muscle spasm) Qty: 20 0RF prednisone 20 mg tablet 40 mg PO DAILY 5 Days Qty: 10 0RF No Action cetirizine [Zyrtec] 10 mg Tablet 10 mg PO DAILY fluticasone propionate [Flonase] 50 mcg/actuation [place],Suspension 1 spray INTRANASAL Q12H Rx Instructions: administer into each nostril cholecalciferol (vitamin D3) [Dialyvite Vitamin D] 125 mcg (5,000 unit) Capsule 125 mcg PO DAILY melatonin 10 mg Tablet 10 mg PO HS PRN (Reason: Sleep) Follow-up/Referrals: PHYSICIAN,MEDICAL SOCIOLOGIST [Primary Care Provider] - Time of Disposition: 18:46
== END 2024-08-22 18:48 | disposition home or self-care (01) ==
PROVIDERS: Emergency Provider Nurse Practitioner
DX: J32.9 Chronic sinusitis, unspecified (principal); M54.50 Low back pain, unspecified; Z87.891 Personal history of nicotine dependence
CPT/HCPCS: 99213; G0463

== ENCOUNTER 2024-09-22 16:36 | Emergency (ER) | payer BC, SELFPAY ==
--- OUTSIDE RECORDS SUMMARY | 2024-09-22 16:38 | XMS_ITS | Clinical Summary ---
Author Organization [facility] Address [address], [address] [address] Phone Care Team Providers Care Cook Manager Name Role Phone Gregor Randolph MD Primary Care Provider [phone] Allergies Active Allergy Reactions Criticality Noted Date [...] Comments Blood Pressure 120/80 07/19/2019 3:35 PM CLAIMS ADJUSTER Pulse 78 07/19/2019 3:35 PM CLAIMS ADJUSTER Temperature 36.6 C (97.8 F) 07/19/2019 3:35 PM CLAIMS ADJUSTER Respiratory Rate 18 07/19/2019 3:35 PM CLAIMS ADJUSTER Oxygen Saturation 98% 07/19/2019 3:35 PM CLAIMS ADJUSTER Inhaled Oxygen Concentration - - Weight 111.1 kg (245 lb) 07/19/2019 3:35 PM CLAIMS ADJUSTER Height 180.3 cm (5' 11 ) 07/19/2019 3:35 PM CLAIMS ADJUSTER Body Mass Index 34.17 07/19/2019 3:35 PM CLAIMS ADJUSTER Plan of Treatment Health Maintenance Due Date Last Done Comments Hepatitis C Virus (HCV) Screening 1975 TdaP Immunization 1975 Hepatitis B Immunization (1 of 3 - 19+ 3-dose series) 1994 Colonoscopy 01/29/2020 Colorectal Cancer Screening 01/29/2020 Influenza [...] patient's age to complete this topic Insurance [facility] Care Teams Cook Manager Relationship Specialty [place] [address] [facility] [address] [place] [address] PCP - General Internal Medicine 08/31/16
--- OUTSIDE RECORDS SUMMARY | 2024-09-22 16:39 | XMS_ITS | Encounter Summary ---
Author Organization [facility] Address [address] [place] [address] Phone Care Team Providers Care Bank Representative Name Role Phone Gregor Randolph MD Primary Care Provider [phone] Reason for Visit * Reason Comments Medication Refill Encounter Details Date Type Department Care Team (Late st Contact Info) Description 11/22/2019 Refill [facility] - [facility] - [place] #[address] [phone] Renetta Esparza PAC Medication Refill Social History [...] rhinitis documented in this encounter Care Teams Bank Representative Relationship Specialty Start [place] [address] [facility] [address] [place] [address] PCP - General Internal Medicine 08/31/16 documented as of this encounter
--- OUTSIDE RECORDS SUMMARY | 2024-09-22 16:39 | XMS_ITS | Referral Summary ---
Author Organization [facility] Address [address] [place] [address] Care Team Providers Care Vegetable Tester Name Role Phone Kendell Musa MD Primary Care Provider + Encounters Date Type Department Care Team Description 09/18/2024 Plan of Care Documentation [facility] Physical Therapy [address] [place] [address] 09/18/2024 4:45 PM CDT Therapy [facility] Physical Therapy [address] [place] [address] Elias Bailey, PT Chronic low back pain without sciatica, unspecified back pain laterality (Primary Dx); Hip pain, unspecified laterality; Annual physical exam 09/07/2024 Results Follow-Up [facility] Primary Care at [address] [place] [phone] Kendell Musa MD 09/04/2024 2:37 PM GLOBAL SALES EXECUTIVE - 09/04/2024 11:59 PM GLOBAL SALES EXECUTIVE Hospital Encounter [place] [id number] Annual physical exam; Left hip pain; Paraspinal Muscle tenderness; Chronic low back pain without sciatica, unspecified back pain laterality Discharge Disposition: Discharge to home or self care 09/04/2024 Telephone [facility] Orthopedics [facility] Sports Medicine [address] [facility] [address] [place] [phone] Etta Toro MA 09/04/2024 2:45 PM GLOBAL SALES EXECUTIVE Lab [facility] [place] [address] [place] [address] [address] [place] [phone] Routine general medical examination at a health care facility (Primary Dx) 09/04/2024 2:00 PM GLOBAL SALES EXECUTIVE Office Visit [facility] Primary Care at [address] [place] [phone] Kendell Musa MD Colon cancer screening (Primary Dx); Annual physical exam; Left hip pain; Chronic low back pain without sciatica, unspecified back pain laterality; Paraspinal Muscle tenderness; Seasonal allergic rhinitis due to pollen; Varicose veins of bilateral lower extremities with other complications; Encounter for screening mammogram for malignant neoplasm of breast; Encounter for immunization 06/25/2024 1:30 PM GLOBAL SALES EXECUTIVE Office Visit [facility] Care at [address] [place] [address] Jennifer Taylor NP Bacterial sinusitis (Primary Dx) 06/25/2024 Telephone [facility] [address] [place] [address] Chioma Diane NP from Last 3 Months Allergies Active Allergy [...] Take 10 mg by mouth daily Active cyclobenzaprine (FLEXERIL) 10 mg tabletIndicatio ns:Muscle Spasm Take 1 tablet (10 mg total) by mouth 3 (three) times a day as needed for muscle spasms 30 tablet 1 5 11/04/19 25 Active Active Problems Problem Noted Date Diagnosed Date Left hip pain 09/04/2024 Muscle tenderness 09/04/2024 Varicose veins of bilateral lower extremities with other complications 09/04/2024 Chronic low back pain without sciatica Seasonal allergic rhinitis 05/11/2012 Overview (10/06/2016): Seasonal allergies Resolved Problems Problem Noted Date Diagnosed Date Resolved Date Post-op pain 06/30/2017 09/04/2024 Immunizations Immunization Administration Dates Next Due Influenza, Trivalent, Preservative Free, Intramu scular 09/04/2024 Social History Tobacco Use Types Packs/Day Years Used Date Smoking Tobacco: Never Smokeless Tobacco: Never Tobacco Cessation:Counseling Given: Not Answered Alcohol Use Standard Drinks/Week Comments No 0 (1 standard drink = 0.6 oz pur e alcohol) PHQ-2 Answer Date Recorded PHQ-2 Total Score (If total score is 3 or more points, staff should administer the PHQ-9) 0 09/04/2024 Comments No Sex and Gender Information Value Date Recorded Sex Assigned at Not on file Legal Sex Female 3:03 PM GLOBAL SALES EXECUTIVE Gender Identity Not on file Sexual Orientation Not on file Last Filed Vital Signs Vital Sign Reading Time Taken Comments Blood Pressure 118/74 09/04/2024 1:49 PM GLOBAL SALES EXECUTIVE Pulse 95 09/04/2024 1:49 PM GLOBAL SALES EXECUTIVE Temperature 36.7 C (98 F) 09/04/2024 1:49 PM GLOBAL SALES EXECUTIVE Respiratory Rate 18 06/25/2024 1:36 PM GLOBAL SALES EXECUTIVE Oxygen Saturation 98% 09/04/2024 1:49 PM GLOBAL SALES EXECUTIVE Inhaled Oxygen Concentration - - Weight 108 kg (238 lb) 09/04/2024 1:49 PM GLOBAL SALES EXECUTIVE Height 180.3 cm (5' 11 ) 09/04/2024 1:49 PM GLOBAL SALES EXECUTIVE Body Mass Index 33.19 09/04/2024 1:49 PM GLOBAL SALES EXECUTIVE Plan of Treatment Not on file Procedures Procedure Name Priority Date/Time Associated Diagnosis Comments EGFR Routine 09/04/2024 2:37 PM GLOBAL SALES EXECUTIVE Annual physical exam RHEUMATOID FACTOR Routine 09/04/2024 2:3 7 PM GLOBAL SALES EXECUTIVE Left hip pain Paraspinal Muscle tenderness Chronic low back pain without sciatica, unspecified back pain laterality HEMOGLOBIN A1C Routine 09/04/2024 2:37 PM GLOBAL SALES EXECUTIVE Annual physical exam THYROID FUNCTION CASCADE Routine 09/04/2024 2:37 PM GLOBAL SALES EXECUTIVE Annual physical exam LIPID PANEL Routine 09/04/2024 2:37 PM GLOBAL SALES EXECUTIVE Annual physical exam COMPREHENSIVE METABOLIC PANEL Routine 09/04/2024 2:37 PM GLOBAL SALES EXECUTIVE Annual physical exam CBC WITHOUT DIFFERENTIAL Routine 09/04/2024 2:37 PM GLOBAL SALES EXECUTIVE Annual physical exam ERYTHROCYTE SEDIMENTATION RATE Routine 09/04/2024 2:37 PM GLOBAL SALES EXECUTIVE Annual physical exam CRP (ACUTE PHASE) Routine 09/04/2024 2:3 7 PM GLOBAL SALES EXECUTIVE Annual physical exam REYES QUALITATIVE WITH REFLEX TO REYES QUANTITATIVE Routine 09/04/2024 2:37 PM GLOBAL SALES EXECUTIVE Annual physical exam CYCLIC CITRUL PEPTIDE ANTIBODY, IGG Routine 09/04/2024 2:37 PM GLOBAL SALES EXECUTIVE Annual physical exam from Last 3 Months Results * REYES ab ql w/rflx to REYES qn (09/04/2024 2:37 PM GLOBAL SALES EXECUTIVE) REYES Negative Comment: Interpretive Data Normal range for REYES Qualitative Antibody = Negative. 1. REYES is performed using indirect immunofluorescence against HEp-2 cells 2. REYES titers are performed on all positive qualitative results. 3. A significantly positive REYES result is defined as a positive nuclear fluorescence at a titer of 1:80 or greater. 4. 15% of normal people above age 65 have significantly positive REYES results. 5% or less of normal people age 65 or under have significantly positive REYES results. Current interpretive data was last revised on 2020. Testing performed by: [facility], [address] [facility], [place]., [address] Blood 09/04/2024 2:37 PM GLOBAL SALES EXECUTIVE 09/05/2024 10:06 AM GLOBAL SALES EXECUTIVE Kendell Musa MD LAB BLOOD ORDERABLES Fin al Result Performing Organization Address [facility] Co de Phone Number JULIA MACEDO [address] [place] [address] * eGFR (09/04/2024 2:37 PM GLOBAL SALES EXECUTIVE) eGFR 90 >=60 mL/min/1. 73 m2 Comment: Interpretive Data Reference Interval Normal >/= 90 mL/min/1.73m2 Mildly decreased* 60 - 89 mL/min/1.73m2 Mildly to moderately decreased 45 - 59 mL/min/1.73m2 Moderately to severely decreased 30 - 44 mL/min/1.73m2 Severely decreased 15 - 29 mL/min/1.73m2 Kidney Failure < 15 mL/min/1.73m2 *Relative to young adult level Estimated glomerular filtration rate is determined by the 2020 CKD-EPI equation recommended by the National Kidney Foundation (A Unifying Approach to GFR Estimation: Recommendations of the NKF-ASK Task Force on Reassessing the Inclusion of Race in Diagnosing Kidney Disease, JASN 2020). The CKD-EPI equation should not be used for patients with unstable renal function and has not been validated in children and those over 70. Current interpretive data was last reviewed 2021. Blood 09/04/2024 2:37 PM GLOBAL SALES EXECUTIVE 09/04/2024 11:04 PM GLOBAL SALES EXECUTIVE Kendell Musa MD LAB BLOOD ORDERABLES Fin al Result JULIA MACEDO [address] [place] [address] * Thyroid Function Prospect (09/04/2024 2:37 PM GLOBAL SALES EXECUTIVE) TSH 1.36 0.30 - 4.20 mcIUnit/mL Blood 09/04/2024 2:37 PM GLOBAL SALES EXECUTIVE 09/04/2024 11:00 PM GLOBAL SALES EXECUTIVE Kendell Musa MD LAB BLOOD ORDERABLES Fin al Result Performing Organization Address [facility] de Phone Number JULIA MACEDO [address] [facility] [place] [address] * Cyclic citrul peptide antibody, IgG (09/04/2024 2:37 PM GLOBAL SALES EXECUTIVE) Pathologist [facility] CCP Ab <0.5 <=2.9 units/mL Comment: Interpretive data Negative: <3 units/mL Positive: > or equal to 3 units/mL Current interpretive data was last revised on 2016. Testing performed by: [facility], [address] [place] [address]., [address] Blood 09/04/2024 2:37 PM GLOBAL SALES EXECUTIVE 09/05/2024 9:59 AM GLOBAL SALES EXECUTIVE Kendell Musa MD LAB BLOOD ORDERABLES Fin al Result Performing Organization Address [facility] Co de Phone Number SWATIBRIDGET MACEDO [address] [place] [address] * Erythrocyte sedimentation rate (09/04/2024 2:37 PM GLOBAL SALES EXECUTIVE) [facility] Erythrocyte sedimentation rate 9 1 - 20 mm/hr Blood 09/04/2024 2:37 PM GLOBAL SALES EXECUTIVE 09/04/2024 11:00 PM GLOBAL SALES EXECUTIVE Kendell Musa MD LAB BLOOD ORDERABLES Fin al Result Performing Organization Address [facility] Co de Phone Number JULIA MACEDO [address] [place] [address] * CBC without differential (09/04/2024 2:37 PM GLOBAL SALES EXECUTIVE) [facility] WBC 6.8 3.8 - 9.9 K/cumm Hgb 13.4 11.9 - 15.5 g/dL [facility] Hct 41.2 35.6 - 45.5 % [facility] Plt 275 150 - 400 K/cumm [facility] MPV 10.3 9.1 - 12.3 fL [facility] RBC 4.45 3.90 - 5.20 M/cumm [facility] MCV 92.6 81.3 - 96.4 fL [facility] MCH 30.1 27.1 - 33.3 pg [facility] MCHC 32.5 32.3 - 35.7 g/dL [facility] RDW CV 12.6 11.1 - 14.9 % [facility] RDW SD 43.2 35.7 - 48.[address] [facility] CH NRBC abs 0.00 0.00 - 0.01 K/cumm [facility] Blood 09/04/2024 2:37 PM GLOBAL SALES EXECUTIVE 09/04/2024 11:00 PM GLOBAL SALES EXECUTIVE Kendell Musa MD LAB BLOOD ORDERABLES Fin al Result Performing Organization Address [facility] de Phone Number [facility] [address] [facility] [place] [address] * Rheumatoid factor (09/04/2024 2:37 PM GLOBAL SALES EXECUTIVE) Rheumatoid factor, quant <10 <=15 IUnits/mL Blood 09/04/2024 2:37 PM GLOBAL SALES EXECUTIVE 09/04/2024 11:00 PM GLOBAL SALES EXECUTIVE Kendell Musa MD LAB BLOOD ORDERABLES Fin al Result Performing Organization Address [facility] de Phone Number [facility] [address] [facility] [place] [address] * CRP (acute phase) (09/04/2024 2:37 PM GLOBAL SALES EXECUTIVE) CRP <3.0 <=10.0 mg/L Blood 09/04/2024 2:37 PM GLOBAL SALES EXECUTIVE 09/04/2024 11:00 PM GLOBAL SALES EXECUTIVE Kendell Musa MD LAB BLOOD ORDERABLES Fin al Result Performing Organization Address [facility] de Phone Number [facility] [address] [facility] [place] [address] * Hemoglobin A1c (09/04/2024 2:37 PM GLOBAL SALES EXECUTIVE) Hgb A1C 4.8 4.0 - 5.6 % Estimated Average Glucose 91 mg/dL JULIA MACEDO Comment: The ADA recommends reporting an estimated Average Glucose (eAG) with all Hemoglobin A1c results using the equation derived from a study of 507 normal and diabetic adults. Minority populations were underrepresented and children were not included. (Diabetes Care 31:7840-8321, 2008). The eAG is not equivalent to a fasting glucose. Blood 09/04/2024 2:37 PM GLOBAL SALES EXECUTIVE 09/04/2024 11:00 PM GLOBAL SALES EXECUTIVE us Kendell Musa MD LAB BLOOD ORDERABLES Fin al Result JULIA [address] Department [place] [address] * (ABNORMAL) Lipid panel (09/04/2024 2:37 PM GLOBAL SALES EXECUTIVE) Cholesterol 146 30 - 199 mg/dL Comment: Interpretive Data Ages < or = 19 years Acceptable: <170 mg/dL Borderline high: 170-199 mg/dL High: >or= 200 mg/dL Ages > or = 20 years Desirable: <200 mg/dL Borderline high: 200-239 mg/dL High: >or= 240 mg/dL Literature References: 1. Expert Panel on Integrated Guidelines for Cardiovascular Health and Risk Reduction in Children and Adolescents. Pediatrics 2011;128:S213 2. NCEP Expert Panel. Circulation 2004;110:227 Current Interpretive Data was last revised on 2018. Triglycerides 156(H) <=149 mg/dL JULIA MACEDO Comment: Interpretive Data Ages < or = 9 years Acceptable: <75 mg/dL Borderline high: 75-99 mg/dL High: >or= 100 mg/dL Ages 10 to 20 years Acceptable: <90 mg/dL Borderline high: 90-129 mg/dL High: >or= 130 mg/dL Ages > or = 20 years Desirable: <150 mg/dL Borderline high: 150-199 mg/dL High: 200-499 mg/dL Very high: >or= 499 mg/dL Literature References: 1. Expert Panel on Integrated Guidelines for Cardiovascular Health and Risk Reduction in Children and Adolescents. Pediatrics 2011;128:S213 2. NCEP Expert Panel. Circulation 2004;110:227 Current Interpretive Data was last revised on 2018. HDL 48 >=40 mg/dL JULIA MACEDO Comment: Interpretive Data Ages < or = 19 years Acceptable: >45 mg/dL Borderline low: 40-45 mg/dL Low: <40 mg/dL Ages > or = 20 years Desirable: >or= 60 mg/dL Low: <40 mg/dL Literature References: 1. Expert Panel on Integrated Guidelines for Cardiovascular Health and Risk Reduction in Children and Adolescents. Pediatrics 2011;128:S213 2. NCEP Expert Panel. Circulation 2004;110:227 Current Interpretive Data was last revised on 2018. LDL, calculated 71 <=129 mg/dL JULIA MACEDO Comment: Interpretive Data Ages < or = 19 years Acceptable: <110 mg/dL Borderline high: 110-129 mg/dL High: >or= 130 mg/dL Ages > or = 20 years Optimal: <100 mg/dL Near optimal: 100-129 mg/dL Borderline high: 130-159 mg/dL High: >160 mg/dL Calculated using the Mark LDL-C estimating equation. This equation was implemented on 2024. Prior to this date LDL-C was estimated using the Friedewald equation. Literature References: 1. Expert Panel on Integrated Guidelines for Cardiovascular Health and Risk Reduction in Children and Adolescents. Pediatrics 2011;128:S213 2. NCEP Expert Panel. Circulation 2004;110:227 3. Mark Baker al. DOMINIC Cardiol. 2020 November 01;5(5):540-548. doi: 10.1001/jamacardio.2020.0013 Current Interpretive Data was last revised on 2024. Non-HDL Cholesterol 98 mg/dL JULIA MACEDO Comment: Interpretive Data Ages < or = 19 years Acceptable: <120 mg/dL Borderline high: 120-144 mg/dL High: >145 mg/dL Ages > or = 20 years When triglycerides are >200 mg/dL, Non-HDL cholesterol is a secondary target of therapy with treatment goals that are 30 mg/dL greater than the LDL cholesterol target. Literature References: 1. Expert Panel on Integrated Guidelines for Cardiovascular Health and Risk Reduction in Children and Adolescents. Pediatrics 2011;128:S213 2. NCEP Expert Panel. Circulation 2004;110:227 Current Interpretive Data was last revised on 2018. Chol/HDL ratio 3 [facility] Blood 09/04/2024 2:37 PM GLOBAL SALES EXECUTIVE 09/04/2024 11:00 PM GLOBAL SALES EXECUTIVE us Kendell Musa MD LAB BLOOD ORDERABLES Fin al Result [facility] [address] Department [place] [address] * Comprehensive metabolic panel (09/04/2024 2:37 PM GLOBAL SALES EXECUTIVE) Sodium 140 135 - 145 mmol/L Potassium, pl 4.0 3.3 - 4.9 mmol/L [facility] Chloride 102 97 - 110 mmol/L [facility] CO2 25 22 - 32 mmol/L [facility] Anion gap 13 2 - 15 mmol/L [facility] BUN 12 6 - 25 mg/dL [facility] Creatinine 0.80 0.60 - 1.10 mg/dL [facility] Glucose 102 70 - 199 mg/dL [facility] Comment: Interpretive Data Fasting glucose >/= 126 mg/dl is diagnostic for diabetes. Fasting is defined as no caloric intake for at least 8 hours. Fasting glucose between 100 mg/dl to 125 mg/dl is diagnostic of prediabetes. In a patient with classic symptoms of hyperglycemia or hyperglycemic crisis, a random glucose >/= 200 mg/dl is diagnostic for diabetes. In the absence of unequivocal hyperglycemia, results should be confirmed by repeat testing. The classification and Diagnosis of Diabetes Diabetes Care 202; 46: S19-S40. Current interpretive data was last revised 2022. Calcium 9.1 8.5 - 10.3 mg/dL [facility] Bilirubin, total 0.4 0.1 - 1.2 mg/dL [facility] Protein, pl 6.8 6.5 - 8.5 g/dL [facility] Albumin 4.3 3.5 - 5.0 g/dL [facility] Alk phos 58 40 - 130 Units/L [facility] ALT 12 7 - 45 Units/L [facility] AST 19 10 - 45 Units/L [facility] Blood 09/04/2024 2:37 PM GLOBAL SALES EXECUTIVE 09/04/2024 11:00 PM GLOBAL SALES EXECUTIVE Kendell Musa MD LAB BLOOD ORDERABLES Fin al Result JULIA [address] Department [place] [address] from Last 3 Months Insurance Zero Motorcycles Zero [employer]cycles Care Teams Vegetable Tester Relationship Specialty Start Date End Date Kendell Musa MD [address] [facility] [address] [place] [address] PCP - General Family Medicine 09/04/24
--- OUTSIDE RECORDS SUMMARY | 2024-09-22 16:39 | XMS_ITS | Clinical Summary ---
Author Organization [facility] Address [address] [place] [address] Care Team Providers Care Freezer Laboratory Technician Name Role Phone Gregor Randolph MD Primary Care Provider [phone] Source Comments [facility],non-owned Affiliates and Associated Physician Practices is amultiple site organization consisting of ambulatory clinics and hospital sitesin [place], [place], [place] and [place]. This disclosure is being madepursuant to the Care Everywhere program and may not contain all information available regarding this patient. Last updated 18.[facility] Allergies Active Allergy Reactions Criticality Noted Date [...] Father CAD (Coronary Artery Disease) Paternal Grandfather AR Relation Name Status Comments Father Paternal Grandfather [...] complete this topic MENINGOCOCCAL (Group B) VACCINE SHARED DECISION-MAKING Aged Out No longer eligible based on patient's age to complete this topic MENINGOCOCCAL GROUPS A/C/Y/W VACCINE Aged Out No longer eligible b ased on patient's age to complete this topic PNEUMOCOCCAL VACCINE Aged Out No long er eligible based on patient's age to complete this topic Care Teams Freezer Laboratory Technician Relationship Specialty [place] [address] [facility] [place] [address] PCP - General Internal Medicine 03/09/16
--- OUTSIDE RECORDS SUMMARY | 2024-09-22 16:39 | XMS_ITS | Encounter Summary ---
Author Organization [facility] Healthcare Address [address] [place] [address] Care Team Providers Care Finishing Lab Technician Name Role Phone Kendell Musa MD Primary Care Provider + Encounter Details Date Type Department Care Team (Late st Contact Info) Description 09/07/2024 Results Follow-Up [facility] Medical Group Primary Care at [address] [place] [phone] Kendell Musa MD [address] [facility] [address] [place] [address] Social History Tobacco Use Types Packs/Day Years [...] on file Legal Sex Female 3:03 PM FUR DESIGNER Gender Identity Not on file Sexual Orientation Not on file documented as of this encounter Plan of Treatment Not on file documented as of this encounter Visit Diagnoses Not on filedocumented in this encounter Care Teams Finishing Lab Technician Relationship Specialty Start Date End Date Kendell Musa MD [address] [place] [address] PCP - General Family Medicine 09/04/24 documented as of this encounter
--- OUTSIDE RECORDS SUMMARY | 2024-09-22 16:39 | XMS_ITS | Clinical Summary ---
Author Organization [facility] Address [address] [place] [address] Care Team Providers Care Family Preservation Worker Name Role Phone Kendell Musa MD Primary Care Provider + Allergies Active [...] 09/04/2024 Chronic low back pain without sciatica 5 Seasonal allergic rhinitis 05/11/2012 Overview (10/06/2016): Seasonal allergies Resolved Problems Problem Noted Date Diagnosed Date Resolved Date Post-op pain 06/30/2017 09/04/2024 Encounters Date Type Department Care Team Description 09/18/2024 4:45 PM CDT Therapy [facility] [place] [address] Elias Bailey, PT Chronic low back pain without sciatica, unspecified back pain laterality (Primary Dx); Hip pain, unspecified laterality; Annual physical exam 09/18/2024 Plan of Care Documentation [facility] Physical [place] [address] 09/07/2024 Results Follow-Up [facility] Primary Care at [address] [address] Kendell Musa MD 09/04/2024 2:45 PM CO FOUNDER AND DIRECTOR Lab [facility] Outpatient Lab at [address] [phone] Routine general medical examination at a health care facility (Primary Dx) 09/04/2024 2:37 PM CO FOUNDER AND DIRECTOR - 09/04/2024 11:59 PM CO FOUNDER AND DIRECTOR Hospital Encounter [address] [address] Annual physical exam; Left hip pain; Paraspinal Muscle tenderness; Chronic low back pain without sciatica, unspecified back pain laterality Discharge Disposition: Discharge to home or self care 09/04/2024 2:00 PM CO FOUNDER AND DIRECTOR Office Visit [facility] Primary Care at [address] [address] Kendell Musa MD Colon cancer screening (Primary Dx); Annual physical exam; Left hip pain; Chronic low back pain without sciatica, unspecified back pain laterality; Paraspinal Muscle tenderness; Seasonal allergic rhinitis due to pollen; Varicose veins of bilateral lower extremities with other complications; Encounter for screening mammogram for malignant neoplasm of breast; Encounter for immunization 09/04/2024 Telephone [facility] [address] [place] [address] Muna Etta, [place] 06/25/2024 1:30 PM CO FOUNDER AND DIRECTOR Office Visit [facility] [place] [address] [place] [phone] Jennifer Taylor NP Bacterial sinusitis (Primary Dx) 06/25/2024 Telephone [facility] [address] [address] Chioma Diane NP from Last 3 Months Immunizations Immunization Administration Dates Next Due Influenza, Trivalent, Preservative Free, Intramu scular 09/04/2024 Surgical History Surgery Date Site/Laterality Comments TUBAL [...] on file Legal Sex Female 3:03 PM CO FOUNDER AND DIRECTOR Gender Identity Not on file Sexual Orientation Not on file Obstetrics History Last Filed Vital Signs Vital Sign Reading Time Taken Comments Blood Pressure 118/74 09/04/2024 1:49 PM CO FOUNDER AND DIRECTOR Pulse 95 09/04/2024 1:49 PM CO FOUNDER AND DIRECTOR Temperature 36.7 C (98 F) 09/04/2024 1:49 PM CO FOUNDER AND DIRECTOR Respiratory Rate 18 06/25/2024 1:36 PM CO FOUNDER AND DIRECTOR Oxygen Saturation 98% 09/04/2024 1:49 PM CO FOUNDER AND DIRECTOR Inhaled Oxygen Concentration - - Weight 108 kg (238 lb) 09/04/2024 1:49 PM CO FOUNDER AND DIRECTOR Height 180.3 cm (5' 11 ) 09/04/2024 1:49 PM CO FOUNDER AND DIRECTOR Body Mass Index 33.19 09/04/2024 1:49 PM CO FOUNDER AND DIRECTOR Plan of Treatment Health Maintenance Due Date Last Done Comments Breast Cancer Screening-Mammogram 1975 Cervical Cancer Screening 1975 Colon Cancer Screening-Colonoscopy 1975 Hepatitis C Screening 1975 DTaP/Tdap/Td Vaccine (1 - Tdap) 1986 Hepatitis B Screening 1993 Covid-19 Vaccine (2023-2 5 season) 2024 05/17/2021, 09/19/2020, 08/28/2020 Depression Screening 09/04/2025 09/04/2024 Regular Well Visit/Exam 18-64 09/04/2025 09/04/2024 Influenza Vaccine Completed 09/04/2024, 05/08/2021, 04/14/2020 Pneumococcal vaccine <65 Aged Out No longer eligible based on patient's age to complete this topic Procedures Procedure Name Priority Date/Time Associated Diagnosis Comments EGFR Routine 09/04/2024 2:37 PM CO FOUNDER AND DIRECTOR Annual physical exam RHEUMATOID FACTOR Routine 09/04/2024 2:3 7 PM CO FOUNDER AND DIRECTOR Left hip pain Paraspinal Muscle tenderness Chronic low back pain without sciatica, unspecified back pain laterality HEMOGLOBIN A1C Routine 09/04/2024 2:37 PM CO FOUNDER AND DIRECTOR Annual physical exam THYROID FUNCTION CASCADE Routine 09/04/2024 2:37 PM CO FOUNDER AND DIRECTOR Annual physical exam LIPID PANEL Routine 09/04/2024 2:37 PM CO FOUNDER AND DIRECTOR Annual physical exam COMPREHENSIVE METABOLIC PANEL Routine 09/04/2024 2:37 PM CO FOUNDER AND DIRECTOR Annual physical exam CBC WITHOUT DIFFERENTIAL Routine 09/04/2024 2:37 PM CO FOUNDER AND DIRECTOR Annual physical exam ERYTHROCYTE SEDIMENTATION RATE Routine 09/04/2024 2:37 PM CO FOUNDER AND DIRECTOR Annual physical exam CRP (ACUTE PHASE) Routine 09/04/2024 2:3 7 PM CO FOUNDER AND DIRECTOR Annual physical exam REYES QUALITATIVE WITH REFLEX TO REYES QUANTITATIVE Routine 09/04/2024 2:37 PM CO FOUNDER AND DIRECTOR Annual physical exam CYCLIC CITRUL PEPTIDE ANTIBODY, IGG Routine 09/04/2024 2:37 PM CO FOUNDER AND DIRECTOR Annual physical exam from Last 3 Months Results * REYES ab ql w/rflx to REYES qn (09/04/2024 2:37 PM CO FOUNDER AND DIRECTOR) REYES Negative Comment: Interpretive Data Normal range [...] last revised on 2020. Testing performed by: [facility], [address] [facility], [place]., [address] Blood 09/04/2024 2:37 PM CO FOUNDER AND DIRECTOR 09/05/2024 10:06 AM CO FOUNDER AND DIRECTOR Kendell Musa MD LAB BLOOD ORDERABLES Fin al Result Performing Organization Address [facility] Co de Phone Number JULIA MACEDO [address] [employer] [place], [place] [id number] * eGFR (09/04/2024 2:37 PM CO FOUNDER AND DIRECTOR) eGFR 90 >=60 mL/min/1. 73 m2 Comment: [...] last reviewed 2021. Blood 09/04/2024 2:37 PM CO FOUNDER AND DIRECTOR 09/04/2024 11:04 PM CO FOUNDER AND DIRECTOR us Kendell Musa MD LAB BLOOD ORDERABLES Fin al Result Performing Organization Address [facility] de Phone Number JULIA MACEDO [address] [place] [address] * Thyroid Function Mobile (09/04/2024 2:37 PM CO FOUNDER AND DIRECTOR) TSH 1.36 0.30 - 4.20 mcIUnit/mL Blood 09/04/2024 2:37 PM CO FOUNDER AND DIRECTOR 09/04/2024 11:00 PM CO FOUNDER AND DIRECTOR Kendell Musa MD LAB BLOOD ORDERABLES Fin al Result Performing Organization Address [facility] de Phone Number JULIA MACEDO [address] [place] [address] * Cyclic citrul peptide antibody, IgG (09/04/2024 2:37 PM CO FOUNDER AND DIRECTOR) Pathologist [facility] CCP Ab <0.5 <=2.9 units/mL Comment: Interpretive data Negative: <3 units/mL Positive: > or equal to 3 units/mL Current interpretive data was last revised on 2016. Testing performed by: [facility], [address] [place]., [address] Blood 09/04/2024 2:37 PM CO FOUNDER AND DIRECTOR 09/05/2024 9:59 AM CO FOUNDER AND DIRECTOR Kendell Musa MD LAB BLOOD ORDERABLES Fin al Result Performing Organization Address [facility] Co de Phone Number [facility] [address] [place] [address] * Erythrocyte sedimentation rate (09/04/2024 2:37 PM CO FOUNDER AND DIRECTOR) [facility] Erythrocyte sedimentation rate 9 1 - 20 mm/hr Blood 09/04/2024 2:37 PM CO FOUNDER AND DIRECTOR 09/04/2024 11:00 PM CO FOUNDER AND DIRECTOR Kendell Musa MD LAB BLOOD ORDERABLES Fin al Result Performing Organization Address [facility] Co de Phone Number [facility] [address] [address] [facility] [employer] [place] [address] * CBC without differential (09/04/2024 2:37 PM CO FOUNDER AND DIRECTOR) [facility] WBC 6.8 3.8 - 9.9 K/cumm Hgb 13.4 11.9 - 15.5 g/dL [facility] Hct 41.2 35.6 - 45.5 % [facility] Plt 275 150 - 400 K/cumm [facility] MPV 10.3 9.1 - 12.3 fL [facility] RBC 4.45 3.90 - 5.20 M/cumm [facility] MCV 92.6 81.3 - 96.4 fL [facility] MCH 30.1 27.1 - 33.3 pg [facility] MCHC 32.5 32.3 - 35.7 g/dL [facility] RDW CV 12.6 11.1 - 14.9 % [facility] RDW SD 43.2 35.7 - 48.1 fL [facility] NRBC abs 0.00 0.00 - 0.01 K/cumm [facility] Blood 09/04/2024 2:37 PM CO FOUNDER AND DIRECTOR 09/04/2024 11:00 PM CO FOUNDER AND DIRECTOR Kendell Musa MD LAB BLOOD ORDERABLES Fin al Result Performing Organization Address [facility] Co de Phone Number JULIA [address] [address] [facility] [employer] [place], [place] [id number] * Rheumatoid factor (09/04/2024 2:37 PM CO FOUNDER AND DIRECTOR) Pathologist [facility] Rheumatoid factor, quant <10 <=15 IUnits/mL Blood 09/04/2024 2:37 PM CO FOUNDER AND DIRECTOR 09/04/2024 11:00 PM CO FOUNDER AND DIRECTOR Kendell Musa MD LAB BLOOD ORDERABLES Fin al Result Performing Organization Address [facility] de Phone Number SWAT[facility]RIDGET [phone] [address] [facility] [place] [place] [address] * CRP (acute phase) (09/04/2024 2:37 PM CO FOUNDER AND DIRECTOR) [facility] CRP <3.0 <=10.0 mg/L Blood 09/04/2024 2:37 PM CO FOUNDER AND DIRECTOR 09/04/2024 11:00 PM CO FOUNDER AND DIRECTOR Kendell Musa MD LAB BLOOD ORDERABLES Fin al Result Performing Organization Address [facility] Co de Phone Number JULIA [address] [address] [facility] [place] [place] [address] * Hemoglobin A1c (09/04/2024 2:37 PM CO FOUNDER AND DIRECTOR) [facility] Hgb A1C 4.8 4.0 - 5.6 % Estimated Average Glucose 91 mg/dL JULIA MACEDO Comment: The ADA recommends reporting an estimated Average Glucose (eAG) with all Hemoglobin A1c results using the equation derived from a study of 507 normal and diabetic adults. Minority populations were underrepresented and children were not included. (Diabetes Care 31:4087-9826, 2008). The eAG is not equivalent to a fasting glucose. Blood 09/04/2024 2:37 PM CO FOUNDER AND DIRECTOR 09/04/2024 11:00 PM CO FOUNDER AND DIRECTOR us Kendell Musa MD LAB BLOOD ORDERABLES Fin al Result JULIA MACEDO [address] Department [place] [address] * (ABNORMAL) Lipid panel (09/04/2024 2:37 PM CO FOUNDER AND DIRECTOR) Cholesterol 146 30 - 199 mg/dL Comment: [...] NCEP Expert Panel. Circulation 2004;110:227 3. Mark Giraldo et al. DOMINIC Cardiol. 2019November 01;5(5):540-548. doi: 10.1001/jamacardio.2020.0013 Current Interpretive Data was [...] 3 [facility] Blood 09/04/2024 2:37 PM CO FOUNDER AND DIRECTOR 09/04/2024 11:00 PM CO FOUNDER AND DIRECTOR us Kendell Musa MD LAB BLOOD ORDERABLES Fin al Result CERNER [address] Department [place] [address] * Comprehensive metabolic panel (09/04/2024 2:37 PM CO FOUNDER AND DIRECTOR) Pathologist [facility] Sodium 140 135 - 145 mmol/L Potassium, [...] classification and Diagnosis of Diabetes Diabetes Care 2021; 46: S19-S40. Current interpretive data was last [...] Units/L [facility]ERNER [facility] Blood 09/04/2024 2:37 PM CO FOUNDER AND DIRECTOR 09/04/2024 11:00 PM CO FOUNDER AND DIRECTOR Kendell Musa MD LAB BLOOD ORDERABLES Fin al Result JULIA [address] Department [place] [address] from Last 3 Months Insurance [employer] ACCESS CHOICE [employer] CHO[employer] Care Teams Family Preservation Worker Relationship Specialty Start Date End Date Kendell Musa MD [address] [facility] [address] [place] [address] PCP - General Family Medicine 09/04/24
[2024-09-22 16:40] VITALS: BP 145/95; PULSE 72; RESP 20; TEMP 37; O2SAT 98
--- NOTE | 2024-09-22 16:48 | ED.GENADULT ---
HPI - General Adult General Chief complaint: Back Pain/Injury Stated complaint: Extreme Back pain Source: patient Mode of arrival: ambulatory Limitations: no limitations History of Present Illness HPI narrative: Patient presents for evaluation of low back pain. She has a history of chronic low back pain for which she has been seen here in the past per reports. She is currently undergoing physical therapy and believes that that is contributing to her current pain level. She bent over to help her toddler today and had significant worsening of her low back pain. She is hunched over the counter in the room upon my arrival for examination. She states pain is localized to the low back, without radiating quality. She rates her symptoms as 10/10. No bladder or bowel incontinence. In the past, toradol, steroids and hydrocodone have been effective. She took Flexeril about 2 hours ago without considerable improvement in her symptoms thereafter. Related Data Home Medications ?Medication ?Instructions ?Recorded ?Confirmed ?Last Taken ?Type cetirizine 10 mg tablet (Zyrtec) 10 mg PO DAILY 06/02/22 06/02/22 Unknown History cholecalciferol (vitamin D3) 125 125 mcg PO DAILY 06/02/22 06/02/22 Unknown History mcg (5,000 unit) capsule (Dialyvite Vitamin D) fluticasone propionate 50 1 spray intranasal Q12H 06/02/22 06/02/22 Unknown History mcg/actuation nasal spray,suspension melatonin 10 mg tablet 10 mg PO HS PRN Sleep 06/02/22 06/02/22 Unknown History Allergies Allergy/AdvReac Type Severity Reaction Status Date / Time latex Allergy Intermediate Rash Verified 09/22/24 16:46 lidocaine Allergy Unknown Itching Verified 09/22/24 16:46 prochlorperazine Allergy Unknown Swelling Verified 09/22/24 16:46 Review of Systems Review of Systems: CONSTITUTIONAL: Denies fever, chills, or sweats. EYES: Denies visual changes, redness, or discharge. ENT: Denies rhinorrhea, congestion, sore throat, or otalgia. CARDIOVASCULAR: Denies chest pain, palpitations, or edema. RESPIRATORY: Denies cough or dyspnea. GASTROINTESTINAL: Denies abdominal pain, nausea, vomiting, or diarrhea. GENITOURINARY: Denies dysuria or hematuria. SKIN: Denies rash or itching. MUSCULOSKELETAL: Reports low back pain. Denies joint pain, or myalgia. NEUROLOGIC: Denies headache, numbness, dizziness, or weakness. PSYCHIATRIC: Denies anxiety or depression. [facility] Past Medical History Medical History (Updated 09/22/24 @ 18:28 by GEORGE Rosales, ) Chronic low back pain Surgical History Surgical History History of Family History Family History Mother Family history non-contributory Social History Social History Living arrangements: with family Gender identity (if verbalized by the patient): Female Sexual Orientation (if Verbalized by the Patient): Straight or Heterosexual Spiritual care concerns: No Exam Narrative: GENERAL: Visibly uncomfortable but well nourished. Hunched over the counter in the room HEAD: Normocephalic, atraumatic. EYES: PERRLA and EOMI. ENT: Nares clear, no rhinorrhea or epistaxis. Mucous membranes moist. Oropharynx without tonsillar hypertrophy exudate or other lesions. Bilateral TMs pearly perez nonbulging NECK: Supple. No adenopathy or masses. No carotid bruits or JVD CHEST: Clear to auscultation. No respiratory distress. No wheezes rales or rhonchi HEART: Regular rate and rhythm. No murmur heard. Normal peripheral pulses. ABDOMEN: Soft, nontender, nondistended, normal active bowel sounds. BACK: No tenderness in the midline or paraspinous muscle of the lumbar spine. There is tenderness over bilateral SI joints EXTREMITIES: Normal range of motion. No edema. SKIN: Warm, dry, no rash. NEURO: No focal deficits. Alert and oriented x3. PSYCH: Normal mood and affect. Course Course Emergency Course: This is a 49-year-old female who presented for evaluation of low back pain. She had no recent injury/trauma and current symptoms consistent with pain experienced in the past. Therefore, we agreed to forego imaging and proceed with symptom control. She was given injection of Toradol. She had mild improvement in her symptoms or after. She was not given Solu-Medrol was able to stand up also lay down on the table. She indicated her symptoms were improved and she felt well enough to go home. We agreed to medrol dose americo and norco which have been effective in the past. She will follow up with her primary provider and will go to the ER for worsening symptoms. Pt in agreement with plan of care. Level of Care: Express Care Visit Vital Signs Vital signs: Vital Signs Temperature 37.0 C 09/22/24 16:40 Pulse Rate 72 09/22/24 16:40 Respiratory Rate 20 09/22/24 16:40 Blood Pressure 145/95 H 09/22/24 16:40 Pulse Oximetry 98 09/22/24 16:40 Oxygen Delivery Room Air 09/22/24 16:40 Temperature 37.0 C 09/22/24 16:40 Pulse Rate 72 09/22/24 16:40 Respiratory Rate 20 09/22/24 16:40 Blood Pressure 145/95 H 09/22/24 16:40 Pulse Oximetry 98 09/22/24 16:40 Oxygen Delivery Room Air 09/22/24 16:40 Medical Decision Making Vital Signs Vital Signs: Vital Signs Temperature 37.0 C 09/22/24 16:40 Pulse Rate 72 09/22/24 16:40 Respiratory Rate 20 09/22/24 16:40 Blood Pressure 145/95 H 09/22/24 16:40 Pulse Oximetry 98 09/22/24 16:40 Oxygen Delivery Room Air 09/22/24 16:40 Temperature 37.0 C 09/22/24 16:40 Pulse Rate 72 09/22/24 16:40 Respiratory Rate 20 09/22/24 16:40 Blood Pressure 145/95 H 09/22/24 16:40 Pulse Oximetry 98 09/22/24 16:40 Oxygen Delivery Room Air 09/22/24 16:40 Discharge Plan Discharge Clinical Impression: Acute exacerbation of chronic low back pain Patient Disposition: Home, Self-Care Condition: Stable Instructions: Antibiotic Form, Acute Low Back Pain (ED) Additional Instructions: APPLICATION OF WARM MOIST HEAT MAY HELP YOUR PAIN Patient Language: Algerian Prescriptions: New methylprednisolone 4 mg tablets,dose pack See Rx Instructions .ROUTE .COMPLEX Qty: 21 0RF Rx Instructions: for 6 days No Action cetirizine [Zyrtec] 10 mg Tablet 10 mg PO DAILY fluticasone propionate [Flonase] 50 mcg/actuation [place],Suspension 1 spray INTRANASAL Q12H Rx Instructions: administer into each nostril cholecalciferol (vitamin D3) [Dialyvite Vitamin D] 125 mcg (5,000 unit) Capsule 125 mcg PO DAILY melatonin 10 mg Tablet 10 mg PO HS PRN (Reason: Sleep) cyclobenzaprine 10 mg tablet 10 mg PO TID PRN (Reason: muscle spasm) Qty: 20 0RF Follow-up/Referrals: Lencho,Kendell Shine MD [Primary Care Provider] - Time of Disposition: 18:31
[2024-09-22] MEDS: KETOROLAC (*BKC) 60 MG/2 ML VIAL IM (16:54)
[2024-09-22] MEDS: methylPREDNISolone SOD SUCC 125 MG VIAL IM (17:57)
== END 2024-09-22 18:38 | disposition home or self-care (01) ==
PROVIDERS: Emergency Provider Nurse Practitioner; PCP Family Medicine
DX: M54.50 Low back pain, unspecified (principal); G89.29 Other chronic pain
CPT/HCPCS: 96372; 99214; G0463; J1885; J2919